=== PATIENT | female | born 1990 | race Caucasian/White ===

== ENCOUNTER → 2016-11-18 | Outpatient (CLI) | payer OTHER ==
[2016-08-24 09:40] VITALS: BP 133/80
[~2016-11-18] MED LIST: BUPR150T8 PO; OMEP20TA63 PO
[2016-11-18 16:35] LABS: CREATININE 0.8 mg/dL (0.6-1.0); GFR 85.4; POTASSIUM 4.5 mmol/L (3.5-5.1)
[2016-11-18 16:42] LABS: CALCIUM 9.1 mg/dL (8.5-10.1)
== END | disposition home or self-care (01) ==
LOC: LAB 16:08
PROVIDERS: ATTEND Nurse Practitioner
DX: I49.3 Ventricular premature depolarization (principal)
CPT/HCPCS: 36415; 80048; 83735

== ENCOUNTER 2016-11-19 17:25 | Emergency (ER) | payer OTHER ==
[~2016-11-19] VITALS: Ht 182.9 cm; Wt 99.8 kg
[2016-11-19] MEDS ORDERED: FENTANYL PF 100 MCG/2 ML VIAL. IV PRN (18:15)
[2016-11-19] MEDS ORDERED: NITROGLYCERIN SUBLINGUAL 0.4 MG BOTTLE OF 25. SL PRN (18:15)
[2016-11-19 18:21] LABS: BASO % 0 % (0-3); EOS % 1 % (0-3); HEMATOCRIT 44.2 % (36.0-47.0); LYMPH # 2.4 x10^3/uL (1.0-4.8); LYMPH % 26 % (24-48); MEAN CORPUSCULAR HEMOGLOBIN 32 pg (25-35); MEAN CORPUSCULAR HGB CONC 34 g/dL (31-37); MEAN CORPUSCULAR VOLUME 94 fL (79-100); MONO % 6 % (0-9); NEUT % 67 % (31-73); PLATELET COUNT 158 x10^3/uL (140-400); RED BLOOD COUNT 4.73 x10^6/uL (3.50-5.40); RED CELL DISTRIBUTION WIDTH 13.3 % (11.5-14.5); WHITE BLOOD COUNT 9.2 x10^3/uL (4.0-11.0)
[2016-11-19 18:31] LABS: INR 1.2 (0.8-1.1); PROTHROMBIN TIME PATIENT 14.1 SEC (11.7-14.0)
[2016-11-19 18:34] LABS: BARBITURATES NEG (NEG); BENZODIAZEPINES NEG (NEG); CANNABINOIDS NEG (NEG); COCAINE NEG (NEG); METHADONE NEG (NEG); OPIATES NEG (NEG); PHENCYCLIDINE NEG (NEG)
[2016-11-19 18:37] LABS: ETHANOL, URINE NEG (NEG)
[2016-11-19 18:43] LABS: CALCIUM 9.9 mg/dL (8.5-10.1); CREATININE 0.9 mg/dL (0.6-1.0); GFR 74.6; POTASSIUM 3.9 mmol/L (3.5-5.1)
[2016-11-19] MEDS ORDERED: ASPIRIN 81 MG TAB.CHEW PO ONE (18:45)
[2016-11-19 19:01] LABS: ALBUMIN 4.6 g/dL (3.4-5.0); ALBUMIN/GLOBULIN RATIO 1.2 (1.0-1.7); TOTAL BILIRUBIN 0.8 mg/dL (0.2-1.0); TOTAL PROTEIN 8.5 g/dL (6.4-8.2)
[2016-11-19 19:11] LABS: NEG OBC SER NEG; POS OBC SER POS
[2016-11-19 20:16] LABS: PHOSPHORUS 3.5 mg/dL (2.6-4.7)
[2016-11-19 21:29] VITALS: BP 111/63
--- NOTE | 2016-11-20 00:26 | ED.ADGEN ---
Past Medical History Past Medical History: No Pertinent History Past Surgical History: No Surgical History Alcohol Use: Occasionally Drug Use: None Adult General Chief Complaint Chief Complaint: Palpitations HPI HPI Patient is a 26 year old woman, with no significant past no history, who has a Mirena in place, and smokes cigarettes, who presents to the emergency department with a complaint of elbow dictations and chest pain. Patient states that she noted intermittent elbow dictations over the past few weeks. 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 She did not see a college sports assistant to have a full evaluation performed yet, patient was instructed to follow-up with the Holter monitor results. Patient states that she is experiencing "discomfort ", and and center for her chest when she has these palpitations, with mild shortness of breath. She denies any chest pain or shortness of breath when she has not experienced any palpitations. Denies any lightheadedness or dizziness, any nausea or vomiting, any weakness emesis or tingling, any drugs or alcohol, any injuries, any similar symptoms previously. No recent travel or surgery, history of DVT or PE, no swelling extremities, no family history of DVT or PE, or sudden cardiac . Review of Systems Review of Systems Constitutional: Denies fever or chills. [] Eyes: Denies change in visual acuity. [] HENT: Denies nasal congestion or sore throat. [] Respiratory: Denies cough or shortness of breath. [] Cardiovascular: Denies chest pain or edema. [] GI: Denies abdominal pain, nausea, vomiting, bloody stools or diarrhea. [] : Denies dysuria. [] Musculoskeletal: Denies back pain or joint pain. [] Integument: Denies rash. [] Neurologic: Denies headache, focal weakness or sensory changes. [] Endocrine: Denies polyuria or polydipsia. [] Lymphatic: Denies swollen glands. [] Psychiatric: Denies depression or anxiety. [] Current Medications Current Medications Current Medications Medications (Trade) Dose Ordered Sig/Mayelin Start Time Stop Time Status Last Admin Dose Admin Aspirin (Children'S Aspirin) 324 mg 1X ONCE 11/19/16 18:45 11/19/16 18:46 DC 11/19/16 18:30 324 MG Fentanyl Citrate (Fentanyl 2ml Vial) 25 mcg PRN Q15MIN PRN 11/19/16 18:15 11/20/16 18:14 Nitroglycerin (Nitrostat) 0.4 mg PRN Q5MIN PRN 11/19/16 18:15 11/20/16 18:14 11/19/16 19:51 0.4 MG Allergies Allergies Allergies Coded Allergies Type Severity Reaction Last Updated Verified No Known Drug Allergies 08/24/16 No Physical Exam Physical Exam Constitutional: Well developed, well nourished, no acute distress, non-toxic appearance. [] HENT: Normocephalic, atraumatic, bilateral external ears normal, oropharynx moist, no oral exudates, nose normal. [] Eyes: PERRLA, EOMI, conjunctiva normal, no discharge. [] Neck: Normal range of motion, no tenderness, supple, no stridor. [] Cardiovascular:Heart rate regular rhythm, no murmur [] Lungs & Thorax: Bilateral breath sounds clear to auscultation [] Abdomen: Bowel sounds normal, soft, no tenderness, no masses, no pulsatile masses. [] Skin: Warm, dry, no erythema, no rash. [] Back: No tenderness, no CVA tenderness. [] Extremities: No tenderness, no cyanosis, no clubbing, ROM intact, no edema. [] Neurologic: Alert and oriented X 3, normal motor function, normal sensory function, no focal deficits noted. [] Psychologic: Affect normal, judgement normal, mood normal. [] Current Patient Data Vital Signs Vital Signs Date Time Temp Pulse Resp B/P Pulse Ox O2 Delivery O2 Flow Rate FiO2 11/19/16 21:29 70 11 111/63 99 Room Air 11/19/16 17:37 98.4 98.4 Lab Values Laboratory Tests Test 11/19/16 17:50 11/19/16 18:03 White Blood Count 9.2x10^3/uL (4.0-11.0) Red Blood Count 4.73x10^6/uL (3.50-5.40) Hemoglobin 15.0g/dL (12.0-15.5) Hematocrit 44.2% (36.0-47.0) Mean Corpuscular Volume 94fL (79-100) Mean Corpuscular Hemoglobin 32pg (25-35) Mean Corpuscular Hemoglobin Concent 34g/dL (31-37) Red Cell Distribution Width 13.3% (11.5-14.5) Platelet Count 158x10^3/uL (140-400) Neutrophils (%) (Auto) 67% (31-73) Lymphocytes (%) (Auto) 26% (24-48) Monocytes (%) (Auto) 6% (0-9) Eosinophils (%) (Auto) 1% (0-3) Basophils (%) (Auto) 0% (0-3) Neutrophils # (Auto) 6.1x10^3uL (1.8-7.7) Lymphocytes # (Auto) 2.4x10^3/uL (1.0-4.8) Monocytes # (Auto) 0.6x10^3/uL (0.0-1.1) Eosinophils # (Auto) 0.1x10^3/uL (0.0-0.7) Basophils # (Auto) 0.0x10^3/uL (0.0-0.2) Prothrombin Time 14.1SEC (11.7-14.0) H Prothrombin Time INR 1.2 (0.8-1.1) H Sodium Level 141mmol/L (136-145) Potassium Level 3.9mmol/L (3.5-5.1) Chloride Level 105mmol/L (98-107) Carbon Dioxide Level 27mmol/L (21-32) Anion Gap 9 (6-14) Blood Urea Nitrogen 9mg/dL (7-20) Creatinine 0.9mg/dL (0.6-1.0) Estimated GFR (Cockcroft-Gault) 74.6 BUN/Creatinine Ratio 10 (6-20) Glucose Level 86mg/dL (70-99) Calcium Level 9.9mg/dL (8.5-10.1) Phosphorus Level 3.5mg/dL (2.6-4.7) Magnesium Level 2.0mg/dL (1.8-2.4) Total Bilirubin 0.8mg/dL (0.2-1.0) Aspartate Amino Transferase (AST) 26U/L (15-37) Alanine Aminotransferase (ALT) 36U/L (14-59) Alkaline Phosphatase 45U/L (46-116) L Troponin I Quantitative < 0.017ng/mL (0.000-0.055) DA-Dbl-R-Type Natriuretic Peptide 39pg/mL (0-124) Total Protein 8.5g/dL (6.4-8.2) H Albumin 4.6g/dL (3.4-5.0) Albumin/Globulin Ratio 1.2 (1.0-1.7) Lipase 100U/L (73-393) Serum Test, Qualitative Negative (NEG) Urine Opiates Screen Neg (NEG) Urine Methadone Screen Neg (NEG) Urine Barbiturates Neg (NEG) Urine Phencyclidine Screen Neg (NEG) Urine Amphetamine/Methamphetamine Neg (NEG) Urine Benzodiazepines Screen Neg (NEG) Urine Cocaine Screen Neg (NEG) Urine Cannabinoids Screen Neg (NEG) Urine Ethyl Alcohol Neg (NEG) Laboratory Tests 11/19/16 17:50 Laboratory Tests 11/19/16 17:50 EKG EKG EC: Sinus rhythm, heart rate 75 bpm, upright axis, QTC of 447, SC 126, QRS of 86, patient with occasional PVCs noted. No ST elevations or depressions, abnormal ECG, does not meet STEMI criteria. As interpreted by me. [] Radiology/Procedures Radiology/Procedures Chest x-ray: One view: Normal cardiopulmonary silhouette, no infiltrates, no effusions, no soft tissue or bony abnormalities identified. As interpreted by me. Course & Med Decision Making Course & Med Decision Making Pertinent Labs and Imaging studies reviewed. (See chart for details) Patient well-appearing, noted to have occasional PVCs on the monitor, which appear to be corresponding with her complaint of palpitations and which she describes as a "squeezing pain" in the chest. Patient does not have any concerning history in her family or personal report. EKG reveals PVCs, with no other acutely concerning findings, intervals are normal. Patient's laboratory studies are reveal any evidence of acute abnormalities. Patient was observed on the monitor for several hours in the ED well her workup was pending. She did not develop any other abnormalities or complaining of any other acute symptoms. Was ambulatory in the ED without issue. Findings as above discussed with Dr. Caballero of cardiology, as his office placed the Holter monitor, patient is feeling comfortable at this time, and would like to be discharged home, she states that she will indeed follow-up with the cardiology office. Dr. Caballero states that his office will contact her on Monday for additional follow-up, and patient is agreeable with this plan as stated. I gave her clear and detailed return instructions with which she voiced understanding and agreement. Patient has a Holter monitor in place as stated, to return to the ED for concerning symptoms as stated. Patient discharged home in stable condition with plan as above. Dragon Disclaimer Dragon Disclaimer This electronic medical record was generated, in whole or in part, using a voice recognition dictation system. Departure Impression: Primary Impression: Palpitation Disposition: HOME, SELF-CARE Condition: IMPROVED HAKEEM ROSAS DO Nov 20, 2016 00:26
--- NOTE | 2016-11-20 08:26 | EKG ---
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
--- NOTE | 2016-11-20 09:05 | RAD ---
AP portable chest History: Chest pain, palpitations AP view was taken of the chest. Lungs are clear. Heart is normal in size. There is no effusion. Impression: 1. No acute chest disease.
== END 2016-11-19 21:39 | disposition home or self-care (01) ==
LOC: ER 17:25
DX: R00.2 Palpitations (principal); R07.89 Other chest pain; R06.02 Shortness of breath; F17.210 Nicotine dependence, cigarettes, uncomplicated
CPT/HCPCS: 36415; 71010; 80053; 83690; 83735; 83880; 84100; 84484; 84703; 85027; 85610; 93005; 99285; G0481

== ENCOUNTER 2016-11-21 16:36 | Emergency (ER) | payer OTHER ==
--- NOTE | 2016-11-22 06:06 | EKG ---
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
== END 2016-11-21 17:00 | disposition left against medical advice (07) ==
LOC: ER 16:36
DX: R07.89 Other chest pain (principal); Z53.21 Procedure and treatment not carried out due to patient leaving prior to being seen by health care provider
CPT/HCPCS: 93005; 99281

== ENCOUNTER → 2016-12-02 | Outpatient (CLI) | payer OTHER ==
[2016-11-19 21:29] VITALS: BP 111/63
--- NOTE | 2016-12-02 14:18 | CARD ---
APPROVED REPORT EXAM: Two-dimensional and M-mode echocardiogram with Doppler and color Doppler. Other Information Quality : Good INDICATION Abnormal ECG RISK FACTORS Smoking 2D DIMENSIONS RVDd2.4 (2.9-3.5cm)Left Atrium(2D)3.4 (1.6-4.0cm) IVSd1.0 (0.7-1.1cm)Aortic Root(2D)2.9 (2.0-3.7cm) LVDd5.2 (3.9-5.9cm)LVOT Diameter2.1 (1.8-2.4cm) PWd1.0 (0.7-1.1cm)LVDs3.1 (2.5-4.0cm) FS (%) 30.0 %SV89.9 ml LVEF(%)60.0 (>50%) Aortic Valve AoV Peak Alessandro.121.7cm/sAoV VTI21.2cm AO Peak GR.5.9mmHgLVOT Peak Alessandro.106.4cm/s AO Mean GR.3mmHgAVA (VMAX)2.97cm2 MARISABEL (VTI)3.30cm2 Mitral Valve MV E Aqdhalca732.2cm/sMV DECEL CCBL687us MV A Gtdhorno69.0cm/sE/A Ratio1.4 Pulmonary Vein S1 Mnvparpi03.6cm/sD2 Eraeuykj38.1cm/s PVa [id number] LEFT VENTRICLE The left ventricle is normal size. There is normal left ventricular wall thickness. The left ventricu lar systolic function is normal and the ejection fraction is within normal range. The Ejection Fracti on is 55-60%. There is normal LV segmental wall motion. Transmitral Doppler flow pattern is normal fo r age. RIGHT VENTRICLE The right ventricle is normal size. The right ventricular systolic function is normal. ATRIA The left atrium size is normal. The right atrium size is normal. The interatrial septum is intact wit h no evidence for an atrial septal defect or patent foramen ovale as noted on 2-D or Doppler imaging. AORTIC VALVE The aortic valve is normal in structure and function. Doppler and Color Flow revealed no significant aortic regurgitation. There is no significant aortic valvular stenosis. MITRAL VALVE The mitral valve is normal in structure and function. There is no evidence of mitral valve prolapse. There is no mitral valve stenosis. Doppler and Color Flow revealed no mitral valve regurgitation note d. TRICUSPID VALVE The tricuspid valve is normal in structure and function. Doppler and Color Flow revealed trace tricus pid regurgitation. There is no tricuspid valve stenosis. PULMONIC VALVE The pulmonary valve is normal in structure and function. Doppler and Color Flow revealed trace pulmon ic valvular regurgitation. There is no pulmonic valvular stenosis. GREAT VESSELS The aortic root is normal in size. The ascending aorta is normal in size. The IVC is normal in size a nd collapses >50% with inspiration. PERICARDIAL EFFUSION There is no evidence of significant pericardial effusion. Critical Notification Critical Value: No <Conclusion> The left ventricle is normal size. The left ventricular systolic function is normal and the ejection fraction is within normal range. The Ejection Fraction is 55-60%. There is normal left ventricular wall thickness. There is no significant aortic valvular stenosis. Doppler and Color Flow revealed no significant aortic regurgitation. Doppler and Color Flow revealed no mitral valve regurgitation noted. Doppler and Color Flow revealed trace tricuspid regurgitation. Doppler and Color Flow revealed trace pulmonic valvular regurgitation.
--- NOTE | 2016-12-02 14:57 | CARD ---
APPROVED REPORT INDICATION Chest Pain Murmur Reason : Abnormal EKG PROCEDURE The patient underwent an Exercise Stress Test using the Shashi Protocol. Blood pressure, heart rate, a nd EKG were monitored. An Echocardiogram was performed by medical administrative technician in four stages in quad fashion. At peak stress four se lected images were obtained and placed side by side with resting images for comparison. STRESS ECHO FINDINGS The resting Echocardiogram showed normal left ventricular contractility with an estimated Ejection Fr action of about 60 %. Normal augmentation of myocardial wall segments using a 16 segment model. Test Type: Exercise Stress Nurse/Tech: DOMENIC Brewer RN Test Indications: Heart murmur Cardiac History and Allergies: see EHR Medications: see EHR Medical History: see EHR Resting ECG: SR with occasional PVC Resting Heart Rate: 73 bpm Resting Blood Pressure: 130/60mmHg Pretest Chest Pain: No chest pain Nurse/Tech Notes Lungs CTA, heart tones WNL Stress Symptoms Dyspnea POST EXERCISE Reason for Termination: Reached target heart rate Target HR: Yes Max HR: 182 bpm 95% of Maximum Predicted HR: 192 bpm Exercise duration: 11:00 min:sec, 4 Stage Exercise capacity: 12.8METs Max Blood Pressure: 170/70mmHg Blood Pressure response to exercise: Normal blood pressure response during stress. Chest Pain: No. Arrhythmia: No. ST Change: No. INTERPRETATION Stress EKG Conclusion: No acute changes were noted. STRESS ECG Stress EKG shows no significant changes. Preliminary Notification Critical Value: No <Conclusion> Good exercise capacity at 12.8 Mets Normal exercise stress echo. Low risk study
== END | disposition home or self-care (01) ==
LOC: ECHO 13:01
PROVIDERS: ATTEND Internal Medicine Cardiovascular Disease
DX: I07.1 Rheumatic tricuspid insufficiency (principal); R01.1 Cardiac murmur, unspecified; I37.1 Nonrheumatic pulmonary valve insufficiency; Z87.891 Personal history of nicotine dependence
CPT/HCPCS: 93017; 93306; 93350